=== PATIENT | male | born 1995 | race Caucasian/White ===

== ENCOUNTER 2019-11-26 06:55 | Emergency (ER) | payer SELFPAY ==
[2019-11-26] MEDS ORDERED: Bupivacaine 0.5% 10 ML VIAL ONE (07:06)
== END 2019-11-26 08:37 ==
LOC: ERS 06:55
DX: S01.112A Laceration without foreign body of left eyelid and periocular area, initial encounter (principal); F10.129 Alcohol abuse with intoxication, unspecified; F32.9 Major depressive disorder, single episode, unspecified; F41.9 Anxiety disorder, unspecified; F17.210 Nicotine dependence, cigarettes, uncomplicated; X78.9XXA Intentional self-harm by unspecified sharp object, initial encounter
CPT/HCPCS: 12011; J3490